=== PATIENT | female | born 1990 | race African-American/Black ===

== ENCOUNTER 2020-03-25 10:26 | Emergency (ER) | payer OTHER ==
[~2020-03-25] VITALS: Ht 165.1 cm; Wt 56.7 kg
[2020-03-25 10:51] VITALS: Ht 165.1 cm; Wt 56.7 kg
[2020-03-25 12:35] LABS: BASOPHIL % 0.6 % (0-2); PLATELET COUNT 215 x10^3mcL (130-400); RED CELL DISTRIBUTION WIDTH 12.4 % (11.5-14.5)
[2020-03-25 12:46] LABS: FREE T4 0.02 ng/dL (0.76-1.46); FREE THYROXINE INDEX 0.8 ug/dL (1.4-4.5); T4(THYROXINE) 2.4 ug/dL (4.7-13.3)
[2020-03-25 13:15] LABS: CARBON DIOXIDE 25.8 mmol/L (21-32); CHLORIDE SERUM 104 mmol/L (98-107); CREATININE SERUM 0.8 mg/dL (0.6-1.0); GFR1 > 60 mL/min; GLUCOSE SERUM 97 mg/dL (74-106); POTASSIUM SERUM 4.8 mmol/L (3.5-5.1); SODIUM SERUM 137 mmol/L (136-145)
[2020-03-25 13:16] LABS: ALKALINE PHOSPHATASE 70 U/L (46-116); ALT/SGPT 27 U/L (14-59); AST/SGOT 16 U/L (15-37); BILIRUBIN TOTAL 0.3 mg/dL (0.20-1.00); TOTAL PROTEIN, SERUM 6.9 g/dL (6.4-8.2)
[2020-03-25 13:29] LABS: T3 TOTAL 1.25 ng/mL
[2020-03-25 16:54] VITALS: BP 126/75
== END 2020-03-25 16:54 | disposition home or self-care (01) ==
LOC: ED 10:26
PROVIDERS: Emergency Medicine
DX: Q89.2 Congenital malformations of other endocrine glands (principal); M54.2 Cervicalgia; Z88.5 Allergy status to narcotic agent
CPT/HCPCS: 84439; Q9967